=== PATIENT | female | born 1965 | race Two or more races ===

== ENCOUNTER → 2016-07-13 | Outpatient (CLI) | payer MEDICARE, OTHER ==
[2014-01-06 09:35] VITALS: BP 152/71
[~2016-07-13] MED LIST: CRESTOR20 MG PO; LISI10TA2 PO; NAPR500T3 PO; NORT10CA3 PO
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
== END | disposition home or self-care (01) ==
LOC: MRI 10:38
PROVIDERS: ATTEND Family Medicine
DX: M51.34 Other intervertebral disc degeneration, thoracic region (principal); M51.46 Schmorl's nodes, lumbar region
CPT/HCPCS: 72148

== ENCOUNTER 2016-07-30 11:22 | Inpatient (IN) | payer MEDICARE, OTHER ==
[~2016-07-30] VITALS: Ht 160 cm; Wt 81.6 kg
--- NOTE | 2016-07-30 12:05 | EKG ---
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
--- NOTE | 2016-07-30 12:28 | RAD ---
EXAM: Chest, single view. HISTORY: Weakness. COMPARISON: None. FINDINGS: A frontal view of the chest is obtained. There is no infiltrate, effusion or pneumothorax. The heart is normal in size. IMPRESSION: No acute pulmonary finding.
--- NOTE | 2016-07-30 12:44 | RAD ---
EXAM: Head CT without contrast. HISTORY: Dizziness. TECHNIQUE: Computed tomographic images of the head were obtained without contrast. COMPARISON: 09/28/2010. FINDINGS: There is no acute or subacute extra-axial or intraparenchymal hemorrhage. There is no mass effect or midline shift. There is no hydrocephalus. There are areas of decreased attenuation within the cerebral white matter, nonspecific and likely related to chronic small vessel disease. There are findings consistent with left suboccipital craniotomy surgery. The orbits and mastoid air cells are unremarkable. The paranasal sinuses are clear. IMPRESSION: No acute intracranial finding. PQRS Compliance Statement: One or more of the following individualized dose reduction techniques were utilized for this examination: 1. Automated exposure control 2. Adjustment of the mA and/or kV according to patient size 3. Use of iterative reconstruction technique
[2016-07-30 13:12] LABS: BASO % 0 % (0-3); EOS % 1 % (0-3); HEMOGLOBIN 15.3 g/dL (12.0-15.5); LYMPH % 31 % (24-48); MEAN CORPUSCULAR HEMOGLOBIN 32 pg (25-35); MEAN CORPUSCULAR HGB CONC 34 g/dL (31-37); MEAN CORPUSCULAR VOLUME 94 fL (79-100); MONO % 7 % (0-9); NEUT % 60 % (31-73); PLATELET COUNT 329 x10^3/uL (140-400); RED BLOOD COUNT 4.81 x10^6/uL (3.50-5.40); RED CELL DISTRIBUTION WIDTH 12.7 % (11.5-14.5); WHITE BLOOD COUNT 13.1 x10^3/uL (4.0-11.0)
[2016-07-30 13:21] LABS: CALCIUM 9.5 mg/dL (8.5-10.1); CREATININE 0.8 mg/dL (0.6-1.0); POTASSIUM 4.4 mmol/L (3.5-5.1)
[2016-07-30] MEDS ORDERED: IV NORMAL SALINE 1000ML BAG 1,000 ML IV ONE (13:30)
[2016-07-30] MEDS ORDERED: DEXAMETHASONE SOD PHOS 20 MG/5 ML VIAL. IV ONE (13:30)
[2016-07-30] MEDS ORDERED: DIPHENHYDRAMINE 50 MG/ML VIAL IVP ONE (13:30)
[2016-07-30] MEDS ORDERED: KETOROLAC TROMETHAMINE 30 MG/ML SYRINGE. IV ONE (13:30)
[2016-07-30] MEDS ORDERED: METOCLOPRAMIDE HCL 10 MG/2 ML VIAL. IV ONE (13:30)
--- NOTE | 2016-07-30 13:47 | PHYS DOC ---
Past Medical History Past Medical History: Diabetes-Type II, High Cholesterol, Hypertension, Migraines, Other Additional Past Medical Histor: lower back pain Past Surgical History: , Other Additional Past Surgical Histo: "head surgery" Alcohol Use: None Drug Use: None Adult General Chief Complaint Chief Complaint: HEADACHE HPI HPI 51-year-old female who is had significant headache for the last several days as well as left-sided lower extremity numbness for the last day. She states the majority of her symptoms started on Sunday. She does state she has history of migraines and that this is not the typical presenting pattern. She tried taking Aleve at home without relief. She currently she rates her pain an 8 out of 10 on the pain scale. She does have some mild nausea but no vomiting. She has no photophobia. She states she has full strength in her extremities but feels numb in her left leg. She denies any chest pain. She denies any abdominal pain. Review of Systems Review of Systems Constitutional: Denies fever or chills [] Eyes: Denies change in visual acuity, redness, or eye pain [] HENT: Denies nasal congestion or sore throat [] Respiratory: Denies cough or shortness of breath [] Cardiovascular: No additional information not addressed in HPI [] GI: Denies abdominal pain, nausea, vomiting, bloody stools or diarrhea [] : Denies dysuria or hematuria [] Musculoskeletal: Denies back pain or joint pain [] Integument: Denies rash or skin lesions [] Neurologic: Has headache, denies focal weakness, has sensory changes [] Endocrine: Denies polyuria or polydipsia [] Current Medications Current Medications Allergies Allergies Allergies Coded Allergies Type Severity Reaction Last Updated Verified No Known Drug Allergies 09/11/13 No Physical Exam Physical Exam Constitutional: Well developed, well nourished, no acute distress, non-toxic appearance. [] HENT: Normocephalic, atraumatic, bilateral external ears normal, oropharynx moist, no oral exudates, nose normal. [] Eyes: PERRLA, EOMI, conjunctiva normal, no discharge. [] Neck: Normal range of motion, no tenderness, supple, no stridor. [] Cardiovascular:Heart rate regular rhythm, no murmur [] Lungs & Thorax: Bilateral breath sounds clear to auscultation [] Abdomen: Bowel sounds normal, soft, no tenderness, no masses, no pulsatile masses. [] Skin: Warm, dry, no erythema, no rash. [] Back: No tenderness, no CVA tenderness. [] Extremities: No tenderness, no cyanosis, no clubbing, ROM intact, no edema. [] Neurologic: Alert and oriented X 3, normal motor function, normal sensory function, no focal deficits noted. [] Psychologic: Affect normal, judgement normal, mood normal. [] Current Patient Data Vital Signs Lab Values EKG EKG EKG as interpreted by me shows a sinus rhythm with rate of 60 bpm. Intervals are normal. There is a leftward axis. There are no acute ischemic findings. Radiology/Procedures Radiology/Procedures CT of the head without contrast demonstrated the following; FINDINGS: There is no acute or subacute extra-axial or intraparenchymal hemorrhage. There is no mass effect or midline shift. There is no hydrocephalus. There are areas of decreased attenuation within the cerebral white matter, nonspecific and likely related to chronic small vessel disease. There are findings consistent with left suboccipital craniotomy surgery. The orbits and mastoid air cells are unremarkable. The paranasal sinuses are clear. One view of the chest as interpreted by me does not reveal an acute cardiopulmonary process. Course & Med Decision Making Course & Med Decision Making Pertinent Labs and Imaging studies reviewed. (See chart for details) 51-year-old female who has had ongoing headache with some left lower extremity numbness. Because of her neuro symptoms, I'll be admitting her to the hospital for further workup. CT of her head was negative. NIH stroke scale is 0. Patient is not a TPA candidate at this time. I discussed the case with the hospitalist, Dr. Erwin, who agreed to admit the patient with neurology consult. Her laboratory workup is unrevealing. Dragon Disclaimer Dragon Disclaimer This electronic medical record was generated, in whole or in part, using a voice recognition dictation system. Departure Departure Impression: Primary Impression: Headache Additional Impression: Left-sided sensory deficit present Disposition: ADMITTED INPATIENT Admitting Physician: Wanda Erwin Condition: STABLE Referrals: PAULINE ALFARO MD (PCP) Problem Qualifiers KYLE JOHNSON DO Jul 30, 2016 13:47
[2016-07-30] MEDS ORDERED: ASPIRIN 325 MG TABLET PO ONE (14:00)
[2016-07-30 14:42] VITALS: BP 118/59
[2016-07-30] MEDS ORDERED: DIAZEPAM 5 MG TABLET PO PRN (15:00)
[2016-07-30] MEDS ORDERED: SUMATRIPTAN SUCCINATE 25 MG TABLET. PO PRN (15:00)
[2016-07-30] MEDS ORDERED: MORPHINE SULFATE 2 MG/ML DISP.SYRIN. IV PRN (15:00)
[2016-07-30] MEDS ORDERED: LISI1TAB3 PO (15:01)
[2016-07-30] MEDS ORDERED: ATOR20TA58 PO (15:01)
[2016-07-30] MEDS ORDERED: MILN50TA PO (15:01)
[2016-07-30] MEDS ORDERED: METH10TA6 PO (15:01)
[2016-07-30] MEDS ORDERED: ERGO500012 PO (15:01)
[2016-07-30] MEDS ORDERED: METF850T2 PO (15:01)
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
[2016-07-30] MEDS ORDERED: SUMATRIPTAN 6 MG/0.5 ML VIAL. SQ ONE (15:30)
[2016-07-30] MEDS ORDERED: MILNACIPRAN 50 MG TABLET PO PRN (15:45)
[2016-07-30] MEDS: LISINOPRIL 10 MG TABLET PO SCH (16:00)
[2016-07-30] MEDS: HYDROCHLOROTHIAZIDE 12.5 MG CAPSULE. PO SCH (16:00)
--- NOTE | 2016-07-30 16:12 | ACF ---
Admission Forms Criteria HEADACHES Clinical Indications for Admission to Inpatient Care (Place 'X' for any and all applicable criteria): Admission is indicated for ANY ONE of the following(1)(2)(3)(4): [X]I. Inpatient admission required rather than observational care (Also use Headaches: Observation Care as appropriate) because of ANY ONE of the following: [X]a) Severe pain requiring acute inpatient management [ ]b) Altered mental status that is severe or persistent [ ]c) Vomiting or dehydration that is severe or persistent [ ]d) New-onset focal neurologic deficit that is severe or persistent [ ]e) Hypertension requiring inpatient treatment [ ]f) Severe (new) neurologic findings requiring inpatient care as indicated by ANY ONE of following(9)(10): [ ]1) Papilledema [ ]2) Cerebral edema [ ]3) Mass effect on CT scan [ ]4) Cerebral bleeding, ischemia, or vasospasm(16) [ ]5) Hydrocephalus(17) [ ]6) Uncontrolled seizures [ ]g) IV infusion of anticoagulation, platelet inhibitors vasoactive, or antiarrhythmic medication. [ ]h) Cerebral bleeding, hydrocephalus, or vasospasm monitoring (16) [ ]i) Increased intracranial pressure or cerebral edema monitoring (17) [ ]j) Other condition, treatment or monitoring requiring inpatient admission [ ]II. Unruptured but threatening aneurysm or vascular malformation [ ]III. Venous sinus thrombosis [ ]IV. Increased intracranial pressure [ ]V. Cerebral spinal fluid leak with decreased intracranial pressure [ ]. Medication-overuse headache that has failed all outpatient management options [ ]VII. Vasculitis (eg, giant cell (temporal) arteritis, central nervous system vasculitis) requiring IV corticosteroids, IV antithrombotic therapy, or inpatient monitoring (eg, visual symptoms or findings, other ischemic manifestations)[A](10)(11) Extended stay beyond goal length of stay may be needed for (27): [ ]a) Intractable migraine [ ]b) Subarachnoid or intracranial hemorrhage [ ]c) Malignant hypertension [ ]d) Detoxification from drug withdrawal in medication-overuse headache (29) The original [id number] content created by [facility] has been revised. The portions of the content which have been revised are identified through the use of italic text or in bold, and Juli [facility] has neither reviewed nor approved the modified material.All other unmodified content is copyright [facility]. Please see references footnoted in the original [facility] edition 2016 Admission Criteria Met?: Yes PACHECO RICCI Jul 30, 2016 16:12
[2016-07-30] MEDS: IBUPROFEN 800 MG TABLET. PO SCH ×2 (18:01→20:25)
[2016-07-30] MEDS: METFORMIN 850 MG TABLET PO SCH (18:01)
[2016-07-30] MEDS: METHIMAZOLE 10 MG TABLET PO SCH (18:01)
[2016-07-30 18:33] VITALS: BP 118/59
[2016-07-30 19:00] VITALS: BP 109/63
[2016-07-30] MEDS ORDERED: ATORVASTATIN CALCIUM 20 MG TABLET PO SCH (21:00)
[2016-07-30 23:00] VITALS: BP 89/55
[2016-07-31 03:00] VITALS: BP 106/57
[2016-07-31 07:00] VITALS: BP 100/64
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
[2016-07-31] MEDS ORDERED: ERGOCALCIFEROL (VITAMIN D2) 50,000 UNIT CAPSULE PO SCH (09:00)
[2016-07-31] MEDS: METFORMIN 850 MG TABLET PO SCH ×2 (09:06→17:04)
[2016-07-31] MEDS: HYDROCHLOROTHIAZIDE 12.5 MG CAPSULE. PO SCH (09:07)
[2016-07-31] MEDS: IBUPROFEN 800 MG TABLET. PO SCH ×2 (09:07→13:30)
[2016-07-31] MEDS: LISINOPRIL 10 MG TABLET PO SCH (09:08)
[2016-07-31 11:00] VITALS: BP 109/60
--- NOTE | 2016-07-31 11:30 | DISCH ---
DISCHARGE INSTRUCTIONS Condition on Discharge Condition on Discharge: Stable Activity After Discharge Activity Instructions for Disc: No restrictions Diet after Discharge Diet after Discharge: Regular Contacting the DR. after DC Call your doctor for: If your condition worsens Follow-Up Follow up with: PCP in 1-2 weeks LYLY OLSON MD Jul 31, 2016 11:30
[2016-07-31] MEDS ORDERED: SUMA50TA3 PO (11:37)
[2016-07-31] MEDS: METHIMAZOLE 10 MG TABLET PO SCH (12:28)
[2016-07-31 12:49] LABS: BILIRUBIN,URINE NEGATIVE (NEG); GLUCOSE,URINE NEGATIVE (NEG); NITRITE,URINE NEGATIVE (NEG); PROTEIN,URINE NEGATIVE (NEG-TRACE); UROBILINOGEN,URINE 0.2 mg/dL (0.2 mg/dL)
[2016-07-31 12:55] LABS: BARBITURATES NEG (NEG); BENZODIAZEPINES NEG (NEG); CANNABINOIDS NEG (NEG); COCAINE NEG (NEG); METHADONE NEG (NEG); OPIATES NEG (NEG); PHENCYCLIDINE NEG (NEG)
[2016-07-31 12:56] LABS: ETHANOL, URINE NEG (NEG)
[2016-07-31 12:58] LABS: BACTERIA,URINE MODERATE /HPF (0-FEW); RBC,URINE 0 /HPF (0-2); SQUAMOUS EPITHELIAL CELL,UR MANY /LPF; WBC,URINE OCC /HPF (0-4)
--- NOTE | 2016-07-31 14:17 | RAD ---
PROCEDURE Brain MRI without contrast. HISTORY Left-sided weakness. TECHNIQUE Multiplanar and multi sequence magnetic resonance imaging of the brain was performed without contrast. COMPARISON Head CT dated 07/30/2015. FINDINGS There is no restricted diffusion to suggest acute or subacute infarction. There is no susceptibility effect to suggest hemorrhage. There is no mass effect or midline shift. There are few foci of T2/FLAIR hyperintensity within the cerebral white matter, a nonspecific finding. There are left suboccipital craniotomy changes with associated overlying soft tissue scarring and increased signal within the left lateral occipital bone. The orbits are unremarkable. There is paranasal sinus mucosal thickening. 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 There is fluid within the mastoid air cells. The distal left vertebral artery appears hypoplastic. IMPRESSION 1. No acute intracranial finding. 2. Scattered foci of signal change within the cerebral white matter, a nonspecific finding likely due to chronic small vessel disease. 3. Left suboccipital craniotomy changes. Electronically signed by: Poonam Britton (Jul 31, 2016 14:15:40)
[2016-07-31 15:00] VITALS: BP 109/64
--- NOTE | 2016-07-31 16:14 | PDOC2 ---
NEUROLOGY CONSULT Date of Admission Date of Admission DATE: 07/31/16 TIME: 16:03 Reason for Consult Reason for Consult: IMPRESSION: Left LE weakness. Intermittent numbness in entire body. Headache. DM HTN HLD Obesity. Smoking. No evidence of acute CVA this time. RECOMMENDATIONS/PLAN: Neurontin 100 mg tid. ASA daily. Treat medical diseases. Lab: see orders. Weight reduction. Smoking cessation. FU with PCP. HISTORY OF THE PRESENT ILLNESS: 51-y-old female with above medical diseases has symptoms of left side weakness, numbness in left side , then right side then entire body. She stated she aslo had headaches. No focalized motor or sensory deficits. PAST MEDICAL HISTORY: Please see above. PAST SURGERY HISTORY: . ALLERGY: Reviewed. MEDICATIONS: Refer to MAR FAMILY HISTORY: DM Heart disease. SOCIAL HISTORY: Lives at home. Denies illicit drug use. She smokes <1 pack of cigarettes a day for many years. She drinks alcohol occasionally. REVIEW OF SYSTEMS: Constitutional: No malnutrition, weight loss, cachexia. Head: No traumatic brain or head injury. Skin: No edema, or rash. Ear: No infection, tinnitus. Eyes: No vision loss or color blindness. Nose: No bleeding or purulent discharges. Hearing: No hearing decrease. Neck: No injury. Breast: No history of cancer, masses,or discharges. Cardiac: HTN, HLD. Pulmonary: No COPD. GI: No GI ulcer, GI bleeding. Urinary/genital: UTI. Endocrinologic: Diabetes Mellitus, obesity. Skeletomuscular: No muscular atrophy, deformity.. Neurological: see HP. Psychiatric: Denies drug use/abuse. Otherwise, not [id number] review of systems. PHYSICAL EXAMINATION: General appearance is in no acute distress. HEENT: Normocephalic and nontraumatic. Eyes, nose, ears, and throat are unremarkable. Neck is supple. No lymphadenopathy. No bruits are heard over the carotid artery. No crepitus. Cardiovascular: S1, S2, regular rate and rhythm. Pulmonary: Clear to auscultation bilaterally. Abdomen: Bowel sounds are positive. Abdomen is soft, nontender, and nondistended. Extremities: No rash, lesions, or edema. No restriction of range of motion NEUROLOGICAL EXAMINATION: Alert Oriented to time, place and person. PERRL. EOMI. CN: no focal findings. Muscle tone: within normal. Muscle strength: 5 DTR: 2 Plantar reflex: Flexor response bilaterally Gait: not examined in bed. Sensory exam: no abnormal findings. No cerebellar signs elicited. F-T-N test accurate. Current Medications Current Medications Current Medications Ketorolac Tromethamine (Toradol) 30 mg 1X ONCE IV Last administered on 13:29; Start 07/30/16 at 13:30; Stop 07/30/16 at 13:31; Status DC Diphenhydramine HCl (Benadryl) 25 mg 1X ONCE IVP Last administered on 13:30; Start 07/30/16 at 13:30; Stop 07/30/16 at 13:31; Status DC Metoclopramide HCl (Reglan) 10 mg 1X ONCE IV Last administered on 07/30/16 13 :30; Start 07/30/16 at 13:30; Stop 07/30/16 at 13:31; Status DC Dexamethasone Sodium Phosphate 10 mg 10 mg 1X ONCE IV Last administered on 13:30; Start 07/30/16 at 13:30; Stop 07/30/16 at 13:31; Status DC Sodium Chloride (Iv Sodium Chloride 0.9% 1000ml Bag) 1,000 ml @ 1,000 mls/hr 1X ONCE IV Last administered on 07/30/16 13:30; Start 07/30/16 at 13:30; Stop 07/30/16 at 14:29; Status DC Aspirin (Triston Aspirin) 325 mg 1X ONCE PO Last administered on 07/30/16 14:06 ; Start 07/30/16 at 14:00; Stop 07/30/16 at 14:01; Status DC Sumatriptan Succinate (Imitrex) 6 mg 1X ONCE SQ Last administered on 15:52; Start 07/30/16 at 15:30; Stop 07/30/16 at 15:31; Status DC Sumatriptan Succinate (Imitrex) 25 mg PRN Q2HR PRN PO MIGRAINE HEADACHE; Start 07/30/16 at 15:00 Diazepam (Valium) 5 mg PRN TID PRN PO ANXIETY Last administered on 07/31/16 03 :48; Start 07/30/16 at 15:00 Morphine Sulfate 2 mg PRN Q2HR PRN IV PAIN; Start 07/30/16 at 15:00 Ibuprofen (Motrin) 800 mg TID PO Last administered on 07/31/16 13:30; Start at 15:30 Atorvastatin Calcium (Lipitor) 20 mg QHS PO Last administered on 07/30/16 20: 26; Start 07/30/16 at 21:00 Ergocalciferol (Vitamin D2) 50,000 unit WEEKLY PO Last administered on 09:06; Start 07/31/16 at 09:00 Hydrochlorothiazide (Microzide) 12.5 mg DAILY PO Last administered on 09:07; Start 07/30/16 at 16:00 Lisinopril (Prinivil) 10 mg DAILY PO Last administered on 07/31/16 09:08; Start 07/30/16 at 16:00 Metformin HCl (Glucophage) 850 mg BIDWMEALS PO Last administered on 07/31/16 09:06; Start 07/30/16 at 17:00 Methimazole (Tapazole) 10 mg DAILY PO Last administered on 07/31/16 12:28; Start 07/30/16 at 16:30 Milnacipran HCl (Savella) 50 mg PRN DAILY PRN PO PAIN; Start 07/30/16 at 15:45 Active Scripts Active Reported Savella (Milnacipran Hcl) 50 Mg Tablet 50 Mg PO DAILY PRN Vitamin D2 (Ergocalciferol (Vitamin D2)) 50,000 Unit Capsule 50,000 Units PO QTH Lisinopril-Hctz 10-12.5 Mg Tab (Lisinopril/Hydrochlorothiazide) 1 Each Tablet 10 -12.5 Mg PO DAILY Methimazole 10 Mg Tablet 10 Mg PO BID Metformin Hcl 850 Mg Tablet 850 Mg PO BIDAC Atorvastatin Calcium 20 Mg Tablet 20 Mg PO HS Crestor (Rosuvastatin Calcium) 20 Mg Tablet 20 Mg PO DAILY Naproxen 500 Mg Tablet 500 Mg PO PRN Lisinopril 10 Mg Tablet 10 Mg PO DAILY Pamelor (Nortriptyline Hcl) 10 Mg Capsule 10 Mg PO DAILY Allergies Allergies: Coded Allergies: No Known Drug Allergies (Unverified , 09/11/13) Vitals VITALS Vital Signs Date Time Temp Pulse Resp B/P Pulse Ox O2 Delivery O2 Flow Rate FiO2 07/31/16 11:00 76 22 109/60 97 Room Air 07/31/16 07:00 100.1 100.1 Labs Labs Laboratory Tests Test 07/30/16 12:55 07/30/16 21:19 07/31/16 08:34 07/31/16 11:06 White Blood Count 13.1x10^3/uL (4.0-11.0) Red Blood Count 4.81x10^6/uL (3.50-5.40) Hemoglobin 15.3g/dL (12.0-15.5) Hematocrit 45.0% (36.0-47.0) Mean Corpuscular Volume 94fL (79-100) Mean Corpuscular Hemoglobin 32pg (25-35) Mean Corpuscular Hemoglobin Concent 34g/dL (31-37) Red Cell Distribution Width 12.7% (11.5-14.5) Platelet Count 329x10^3/uL (140-400) Neutrophils (%) (Auto) 60% (31-73) Lymphocytes (%) (Auto) 31% (24-48) Monocytes (%) (Auto) 7% (0-9) Eosinophils (%) (Auto) 1% (0-3) Basophils (%) (Auto) 0% (0-3) Neutrophils # (Auto) 7.9x10^3uL (1.8-7.7) Lymphocytes # (Auto) 4.0x10^3/uL (1.0-4.8) Monocytes # (Auto) 0.9x10^3/uL (0.0-1.1) Eosinophils # (Auto) 0.1x10^3/uL (0.0-0.7) Basophils # (Auto) 0.0x10^3/uL (0.0-0.2) Sodium Level 143mmol/L (136-145) Potassium Level 4.4mmol/L (3.5-5.1) Chloride Level 103mmol/L (98-107) Carbon Dioxide Level 29mmol/L (21-32) Anion Gap 11 (6-14) Blood Urea Nitrogen 9mg/dL (7-20) Creatinine 0.8mg/dL (0.6-1.0) Estimated GFR (Cockcroft-Gault) 75.0 Glucose Level 87mg/dL (70-99) Calcium Level 9.5mg/dL (8.5-10.1) Glucose (Fingerstick) 197mg/dL (70-99) 192mg/dL (70-99) 149mg/dL (70-99) Test 07/31/16 12:35 07/31/16 12:40 Urine Collection Type Unknown Urine Color Yellow Urine Clarity Clear Urine pH 6.0 Urine Specific [place] 1.015 Urine Protein Negativemg/dL (NEG-TRACE) Urine Glucose (UA) Negativemg/dL (NEG) Urine Ketones (Stick) Negativemg/dL (NEG) Urine Blood Negative (NEG) Urine Nitrite Negative (NEG) Urine Bilirubin Negative (NEG) Urine Urobilinogen Dipstick 0.2mg/dL (0.2 mg/dL) Urine Leukocyte Esterase Negative (NEG) Urine RBC 0/HPF (0-2) Urine WBC Occ/HPF (0-4) Urine Squamous Epithelial Cells Many/LPF Urine Bacteria Moderate/HPF (0-FEW) Urine Mucus Mod/LPF Urine Opiates Screen Neg (NEG) Urine Methadone Screen Neg (NEG) Urine Barbiturates Neg (NEG) Urine Phencyclidine Screen Neg (NEG) Urine Amphetamine/Methamphetamine Neg (NEG) Urine Benzodiazepines Screen Neg (NEG) Urine Cocaine Screen Neg (NEG) Urine Cannabinoids Screen Neg (NEG) Urine Ethyl Alcohol Neg (NEG) Erythrocyte Sedimentation Rate 4 (0-25) Laboratory Tests Test 07/30/16 21:19 07/31/16 08:34 07/31/16 11:06 07/31/16 12:35 Glucose (Fingerstick) 197mg/dL (70-99) 192mg/dL (70-99) 149mg/dL (70-99) Urine Collection Type Unknown Urine Color Yellow Urine Clarity Clear Urine pH 6.0 Urine Specific [place] 1.015 Urine Protein Negativemg/dL (NEG-TRACE) Urine Glucose (UA) Negativemg/dL (NEG) Urine Ketones (Stick) Negativemg/dL (NEG) Urine Blood Negative (NEG) Urine Nitrite Negative (NEG) Urine Bilirubin Negative (NEG) Urine Urobilinogen Dipstick 0.2mg/dL (0.2 mg/dL) Urine Leukocyte Esterase Negative (NEG) Urine RBC 0/HPF (0-2) Urine WBC Occ/HPF (0-4) Urine Squamous Epithelial Cells Many/LPF Urine Bacteria Moderate/HPF (0-FEW) Urine Mucus Mod/LPF Urine Opiates Screen Neg (NEG) Urine Methadone Screen Neg (NEG) Urine Barbiturates Neg (NEG) Urine Phencyclidine Screen Neg (NEG) Urine Amphetamine/Methamphetamine Neg (NEG) Urine Benzodiazepines Screen Neg (NEG) Urine Cocaine Screen Neg (NEG) Urine Cannabinoids Screen Neg (NEG) Urine Ethyl Alcohol Neg (NEG) Test 07/31/16 12:40 Erythrocyte Sedimentation Rate 4 (0-25) JOHANA MYERS MD Jul 31, 2016 16:13
[2016-07-31 17:15] LABS: ALT (SGPT) 22 U/L (14-59); AST (SGOT) 14 U/L (15-37); CREATINE KINASE 54 U/L (26-192)
[2016-07-31] MEDS ORDERED: GABAPENTIN 100 MG CAPSULE. PO SCH (21:00)
[2016-08-01] MEDS ORDERED: ASPIRIN 81 MG TAB.CHEW PO SCH (08:00)
--- NOTE | 2016-08-01 17:56 | DS ---
DATE OF DISCHARGE: 07/31/2016 CHIEF COMPLAINT: Intractable headache. HOSPITAL COURSE: The patient is a 51-year-old woman with history of migraine/tension headaches. She presented to the Emergency Room with severe headaches, not responding to her usual medications. She was therefore admitted for pain management. She actually responded well to IV narcotics. Headache was resolved on the second day. She was therefore discharged to home. Discussion with her was held about trial of Imitrex. Prescription was made available. PHYSICAL EXAMINATION: Please refer to note from same date. DATE OF DISCHARGE: 07/31/2016. DISCHARGE DISPOSITION: To home. DISCHARGE CONDITION: Improved. DISCHARGE DIAGNOSES: Intractable headache. DISCHARGE MEDICATIONS: Please refer to MAR. DISCHARGE INSTRUCTIONS: The patient will follow up with PCP in 1-2 weeks. LYLY OLSON MD DR: UR/nts JOB#: [id number] / [id number] PAULINE Durham MD MTDD
== END 2016-07-31 19:45 | disposition home or self-care (01) | DRG 103 ==
LOC: ER 11:22 → 5 SOUTH 11:38
PROVIDERS: ADMIT Internal Medicine; ATTEND Internal Medicine
DX: G43.909 Migraine, unspecified, not intractable, without status migrainosus (principal); G44.209 Tension-type headache, unspecified, not intractable; E11.9 Type 2 diabetes mellitus without complications; E66.9 Obesity, unspecified; E78.00 Pure hypercholesterolemia, unspecified; E78.5 Hyperlipidemia, unspecified; F17.210 Nicotine dependence, cigarettes, uncomplicated; I10 Essential (primary) hypertension; Z83.3 Family history of diabetes mellitus; Z79.899 Other long term (current) drug therapy; Z79.82 Long term (current) use of aspirin; Z98.890 Other specified postprocedural states; R53.1 Weakness
CPT/HCPCS: 36415; 70450; 70551; 71010; 80048; 81001; 82550; 82947; 84450; 84460; 85027; 85651; 87086; 93005; 96361; 96374; 96375; G0481; J1100; J1200; J1885; J2765; J3030; J7030; 99285-25

== ENCOUNTER 2016-09-24 21:48 | Inpatient (IN) | payer MEDICARE, OTHER ==
[~2016-09-24] VITALS: Ht 160 cm; Wt 83.0 kg
[~2016-09-24 21:48] MED LIST changes: +ATOR20TA58 PO; +ERGO500012 PO; +LISI1TAB3 PO; +METF850T2 PO; +METH10TA6 PO; +MILN50TA PO; +SUMA50TA3 PO
[2016-09-24] MEDS ORDERED: IV NORMAL SALINE 1000ML BAG 1,000 ML IV SCH (22:30)
[2016-09-24] MEDS ORDERED: FENTANYL PF 100 MCG/2 ML VIAL. IV PRN (22:30)
[2016-09-24] MEDS ORDERED: ASPIRIN 81 MG TAB.CHEW PO ONE (22:30)
[2016-09-24] MEDS ORDERED: ONDANSETRON PF 4 MG/2 ML VIAL. IV ONE (22:30)
--- NOTE | 2016-09-24 22:30 | PHYS DOC ---
Past Medical History Past Medical History: Diabetes-Type II, High Cholesterol, Hypertension, Migraines, Other Additional Past Medical Histor: lower back pain Past Surgical History: , Other Additional Past Surgical Histo: "head surgery" Alcohol Use: None Drug Use: None Adult General Chief Complaint Chief Complaint: CHEST PAIN HPI HPI Patient is a 51 year old female who presents with complaint of chest pain that started approximately 1 hour prior to arrival. Patient states her symptoms started at rest. Patient states that her pain is located along left side of her chest and left axilla. Patient describes it as pressure, 10 out of 10, and radiates to the left side of her back. Patient has history of hypertension, hyperlipidemia, and diabetes mellitus. Patient denies history of similar symptoms. Patient has not taken any medications to help with symptoms. Review of Systems Review of Systems Constitutional: Denies fever or chills [] Eyes: Denies change in visual acuity, redness, or eye pain [] HENT: Denies nasal congestion or sore throat [] Respiratory: Denies cough or shortness of breath [] Cardiovascular: Chest pain, denies edema [] GI: Denies abdominal pain, nausea, vomiting, bloody stools or diarrhea [] : Denies dysuria or hematuria [] Musculoskeletal: Denies back pain or joint pain [] Integument: Denies rash or skin lesions [] Neurologic: Denies headache, focal weakness or sensory changes [] Current Medications Current Medications Current Medications Medications (Trade) Dose Ordered Sig/Bacilio Start Time Stop Time Status Last Admin Dose Admin Aspirin (Children'S Aspirin) 324 mg 1X ONCE 09/24/16 22:30 09/24/16 22:31 DC 09/24/16 22:46 324 MG Fentanyl Citrate 50 mcg 50 mcg PRN Q15MIN PRN 09/24/16 22:30 09/25/16 22:29 Nitroglycerin (Nitrostat) 0.4 mg PRN Q5MIN PRN 09/24/16 22:30 09/25/16 22:29 09/24/16 22:48 0.4 MG Ondansetron HCl (Zofran) 4 mg 1X ONCE 09/24/16 22:30 09/24/16 22:31 DC 09/24/16 22:43 4 MG Sodium Chloride (Iv Sodium Chloride 0.9% 1000ml Bag) 1,000 ml @ 100 mls/hr Q10H 09/24/16 22:30 09/25/16 08:29 09/24/16 22:41 100 MLS/HR Allergies Allergies Allergies Coded Allergies Type Severity Reaction Last Updated Verified No Known Drug Allergies 09/11/13 No Physical Exam Physical Exam Constitutional: Alert, afebrile, appears in moderate discomfort. [] HENT: Normocephalic, atraumatic, bilateral external ears normal, oropharynx moist, no oral exudates, nose normal. [] Eyes: PERRLA, EOMI, conjunctiva normal, no discharge. [] Neck: Normal range of motion, no tenderness, supple, no stridor. [] Cardiovascular:Heart rate regular rhythm, no murmur [] Lungs & Thorax: Bilateral breath sounds clear to auscultation [] Abdomen: Bowel sounds normal, soft, no tenderness, no masses, no pulsatile masses. [] Skin: Warm, dry, no erythema, no rash. [] Back: No tenderness, no CVA tenderness. [] Extremities: No tenderness, no cyanosis, no clubbing, ROM intact, no edema. [] Neurologic: Alert and oriented X 3, normal motor function, normal sensory function, no focal deficits noted. [] Current Patient Data Vital Signs Vital Signs Date Time Temp Pulse Resp B/P Pulse Ox O2 Delivery O2 Flow Rate FiO2 09/24/16 22:48 87 115/58 Lab Values Laboratory Tests Test 09/24/16 21:55 White Blood Count 15.7x10^3/uL (4.0-11.0) H Red Blood Count 4.69x10^6/uL (3.50-5.40) Hemoglobin 15.1g/dL (12.0-15.5) Hematocrit 44.6% (36.0-47.0) Mean Corpuscular Volume 95fL (79-100) Mean Corpuscular Hemoglobin 32pg (25-35) Mean Corpuscular Hemoglobin Concent 34g/dL (31-37) Red Cell Distribution Width 14.2% (11.5-14.5) Platelet Count 313x10^3/uL (140-400) Neutrophils (%) (Auto) 63% (31-73) Lymphocytes (%) (Auto) 30% (24-48) Monocytes (%) (Auto) 7% (0-9) Eosinophils (%) (Auto) 1% (0-3) Basophils (%) (Auto) 0% (0-3) Neutrophils # (Auto) 9.8x10^3uL (1.8-7.7) H Lymphocytes # (Auto) 4.7x10^3/uL (1.0-4.8) Monocytes # (Auto) 1.0x10^3/uL (0.0-1.1) Eosinophils # (Auto) 0.1x10^3/uL (0.0-0.7) Basophils # (Auto) 0.0x10^3/uL (0.0-0.2) Sodium Level 140mmol/L (136-145) Potassium Level 3.7mmol/L (3.5-5.1) Chloride Level 101mmol/L (98-107) Carbon Dioxide Level 27mmol/L (21-32) Anion Gap 12 (6-14) Blood Urea Nitrogen 16mg/dL (7-20) Creatinine 0.8mg/dL (0.6-1.0) Estimated GFR (Cockcroft-Gault) 75.0 Glucose Level 158mg/dL (70-99) H Calcium Level 9.6mg/dL (8.5-10.1) Magnesium Level 1.7mg/dL (1.8-2.4) L Total Bilirubin 0.3mg/dL (0.2-1.0) Direct Bilirubin 0.1mg/dL (0.0-0.2) Aspartate Amino Transferase (AST) 14U/L (15-37) L Alanine Aminotransferase (ALT) 24U/L (14-59) Alkaline Phosphatase 124U/L (46-116) H Creatine Kinase 113U/L (26-192) Creatine Kinase MB (Mass) < 0.5ng/mL (0.0-3.6) Creatine Kinase MB Relative Index 0.4% (0-4) Troponin I Quantitative < 0.017ng/mL (0.000-0.055) QJ-Czq-H-Type Natriuretic Peptide 11pg/mL (0-124) Total Protein 7.7g/dL (6.4-8.2) Albumin 4.0g/dL (3.4-5.0) Lipase 146U/L (73-393) Laboratory Tests 09/24/16 21:55 Laboratory Tests 09/24/16 21:55 EKG EKG Interpreted by me: Heart rate 90, sinus rhythm, normal intervals, normal axis, no acute ST/T-wave abnormalities present [] Radiology/Procedures Radiology/Procedures One view AP chest x-ray interpreted by me: No infiltrates, no effusions, normal cardiac silhouette [] Course & Med Decision Making Course & Med Decision Making Pertinent Labs and Imaging studies reviewed. (See chart for details) Patient was given aspirin, nitroglycerin, and fentanyl in the emergency department. Patient's symptoms have improved but are still present at this time. The patient has significant risk factors for coronary artery disease. The patient will need admission to the hospital for rule out of myocardial infarction. Patient admitted to Dr. Erwin. A consult was placed to Dr. Bingham to follow patient in hospital. Dragon Disclaimer Dragon Disclaimer This electronic medical record was generated, in whole or in part, using a voice recognition dictation system. Departure Departure Impression: Primary Impression: Chest pain Additional Impressions: Hypertension Diabetes mellitus Hyperlipidemia Disposition: ADMITTED INPATIENT Admitting Physician: Wanda Erwin Condition: STABLE Referrals: PAULINE ALFARO MD (PCP) Problem Qualifiers Primary Impression: Chest pain Chest pain type: unspecified Qualified Code: R07.9 - Chest pain, unspecified Additional Impressions: Hypertension Hypertension type: essential hypertension Qualified Code: I10 - Essential ( primary) hypertension Diabetes mellitus Diabetes mellitus type: type 2 Diabetes mellitus complication status: without complication 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
[2016-09-24 22:32] LABS: BASO % 0 % (0-3); EOS % 1 % (0-3); HEMATOCRIT 44.6 % (36.0-47.0); HEMOGLOBIN 15.1 g/dL (12.0-15.5); LYMPH # 4.7 x10^3/uL (1.0-4.8); LYMPH % 30 % (24-48); MEAN CORPUSCULAR HEMOGLOBIN 32 pg (25-35); MEAN CORPUSCULAR HGB CONC 34 g/dL (31-37); MEAN CORPUSCULAR VOLUME 95 fL (79-100); MONO % 7 % (0-9); NEUT % 63 % (31-73); PLATELET COUNT 313 x10^3/uL (140-400); RED BLOOD COUNT 4.69 x10^6/uL (3.50-5.40); RED CELL DISTRIBUTION WIDTH 14.2 % (11.5-14.5); WHITE BLOOD COUNT 15.7 x10^3/uL (4.0-11.0)
[2016-09-24] MEDS: NITROGLYCERIN SUBLINGUAL 0.4 MG BOTTLE OF 25. SL PRN ×2 (22:41→22:48)
[2016-09-24 22:54] LABS: CALCIUM 9.6 mg/dL (8.5-10.1); CREATININE 0.8 mg/dL (0.6-1.0); POTASSIUM 3.7 mmol/L (3.5-5.1)
[2016-09-24 22:57] LABS: DIRECT BILIRUBIN 0.1 mg/dL (0.0-0.2); MAGNESIUM 1.7 mg/dL (1.8-2.4); TOTAL BILIRUBIN 0.3 mg/dL (0.2-1.0); TOTAL PROTEIN 7.7 g/dL (6.4-8.2)
[2016-09-24 23:01] LABS: CREATINE KINASE 113 U/L (26-192)
[2016-09-24 23:03] LABS: CKMB INDEX 0.4 % (0-4); CKMB MASS < 0.5 ng/mL (0.0-3.6)
--- NOTE | 2016-09-24 23:36 | ACF ---
Admit Criteria Forms Admit Criteria Forms Admit Criteria Forms CHEST PAIN Clinical Indications for Admission to Inpatient Care (Place 'X' for any and all applicable criteria): Admission is indicated for chest pain and ANY ONE of the following(1)(2)(3)(4)(5 ): [ ]I. Angina with acute coronary syndrome (Also use Myocardial Infarction or Angina guideline) [X]II. Hemodynamic instability [ ]III. Angina needing acute intervention as indicated by ALL of the following( 11)(12): [ ]a) Unstable angina is present as indicated by angina that is ANY ONE of the following: [ ]i) New onset [ ]ii) Nocturnal [ ]iii) Prolonged at rest [ ]iv) Progressive [ ]b) Angina warrants acute intervention as indicated by ANY ONE of the following: [ ]i) Recurrent angina (e.g, not responding as previously to treatment) [ ]ii) Angina at rest or with low-level activities despite initial medical therapy [ ]iii) New or presumably new ST-segment depression on ECG [ ]iv) Signs or symptoms of heart failure (eg, dyspnea, pulmonary edema) [ ]v) New or worsening mitral regurgitation [ ]vi) Hemodynamic instability [ ]vii) Dangerous arrhythmia (eg, sustained ventricular tachycardia) [ ]viii) History of percutaneous coronary intervention within 6 months [ ]ix) History of coronary artery bypass graft surgery [ ]x) GALE risk score of 2 or greater[A] [ ]xi) History of Diabetes(14) [ ]xii) High-risk cardiac ischemia findings on noninvasive testing (e.g, echocardiogram, treadmill testing, nuclear scan) [ ]xiii) Chronic renal insufficiency (ie, estimated GFR less than 60 mL/min/1.732m) [ ]xiv) Left ventricular ejection fraction less than 40% [ ]IV. Evidence of CT (eg, cardiac biomarkers positive, ST-segment elevation on ECG) also use Myocardial Infarction Criteria Form. [ ]V. Pulmonary edema [ ]. Respiratory distress [ ]VII. Chest pain indicative of serious diagnosis other than coronary artery disease (eg, aortic dissection) [ ]VIII. Contraindications and/or Inappropriate clinical situations for Observational Care in patients with Chest Pain, when ANY ONE of the following is required: [ ]a) Patient with risk factor for pulmonary embolism, acute coronary syndrome and myocardial infarction (18) [ ]b) Patient with Pulmonary embolism require an average LOS of 4.3 days, therefore emergency department observation management is inappropriate 18,23 [ ]c) Painful condition/s in the elderly, have the highest rate of recidivism after emergency department observation management (10.8%) 20,21,22 [ ]d) Elevated cardiac biomarker requires intensive and exhaustive care (19) [ ]IX. General contraindications and/or Inappropriate clinical situations for Observational Care in patients with Chest Pain, when ANY ONE of the following is required: [ ]a) Prediction of prolongation of LOS based on ANY ONE of the following may be considered as a contraindication for observational care 2, 3, 4, 5, 6, 7, 8, 9, 10, 11 [ ]i) Age > 65 yrs. [ ]ii) Patient arriving by ambulance [ ]iii) Patient with high acuity [ ]iv) Patient requiring vital sign monitoring [ ]v) Patient on IV medication [ ]b) Systolic blood pressures 180mmHg 3,12 [ ]c) Patient with altered mental status including delirium and other alteration of consciousness, (3) [ ]d) Patient whose discharge disposition will be to a shelter home or rehabilitation home should not be managed in Emergency Department Observation Unit. CMS rule requires 3 days hospital stay before such placement. 3,13 [ ]e) Patient with failure to thrive due to broad array of etiologies 3,16,17 [ ]f) Inability to ambulate 3,14 Extended stay beyond goal length of stay may be needed for (1)(28): [ ]a) Specific condition diagnosed after evaluation (eg, pulmonary embolism, aortic dissection) [ ]b) Unstable angina [ ]c) Continued suspicion of acute coronary syndrome with inability to complete needed cardiac evaluation (eg, patient clinically unable to undergo stress testing) [ ]d) Myocardial infarction (Contents from ANGINA and CHEST PAIN clinical indications for admission to inpatient care have been integrated in this form) The original Original content created by Original has been revised. The portions of the content which have been revised are identified through the use of italic text or in bold, and [facility] has neither reviewed nor approved the modified material. All other unmodified content is copyright Original. Please see references footnoted in the original Original edition 2016 HERB ELENA Sep 24, 2016 23:36
[2016-09-25] VITALS (7 sets, daily range): BP systolic 95–116; BP diastolic 53–74
[2016-09-25] MEDS ORDERED: ASPI1TAB2 PO (02:03)
--- NOTE | 2016-09-25 06:18 | EKG ---
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
--- NOTE | 2016-09-25 08:06 | RAD ---
Portable chest, 09/24/2016: History: Chest pain Comparison is made to a study from 07/30/2016. The heart is at the upper limits of normal in size. The pulmonary vascularity is normal. No pulmonary infiltrates are seen There is no evidence of pleural fluid. IMPRESSION: No acute cardiopulmonary abnormality is detected.
[2016-09-25] MEDS ORDERED: FLU VACC QUAD 2016-17 (36MOS+)/PF 0.5 ML SYRINGE. VAX IM ONE (09:00)
[2016-09-25] MEDS ORDERED: INFLUENZA VAX SCREEN BY RX. MC ONE (09:00)
--- NOTE | 2016-09-25 09:44 | PDOC2 ---
CARDIAC CONSULT DATE OF CONSULT Date of Consult DATE: 09/25/16 TIME: 09:40 REASON FOR CONSULT Reason for Consult: Chest pain REFERRING PHYSICIAN Referring Physician: Doe SOURCE Source: Chart review, Patient HISTORY OF PRESENT ILLNESS HISTORY OF PRESENT ILLNESS This is a pleasant 51 yo female admitted for complains of chest pain. Reports that in the last 1-2 weeks she has been more tired that usual but no SOA. Reports that last night about 8 PM she started having this lingering left axillary chest discomfort, stabbing and burning sensation that radiated to left chest under breast and left arm with some numbness as well. Currently these are absent. No prior episodes before last nights occurrence. Also associated with nausea, but no palpitations nor dizziness. Reports no prior hx of CAD, VTE , falls or any injury. Reports no prior heavy lifting, shoulder impingement or injury. PAST MEDICAL HISTORY Cardiovascular: HTN, Hyperlipidemia Pulmonary: No pertinent hx CENTRAL NERVOUS SYSTEM: Migraine, Other GI: Diverticulosis Heme/Onc: No pertinent hx Hepatobiliary: No pertinent hx Psych: No pertinent hx Musculoskeletal: Osteoarthritis Rheumatologic: No pertinent hx Infectious disease: No pertinent hx ENT: No pertinent hx Renal/: No pertinent hx Endocrine: Diabetes (2), Hyperthyroidism Dermatology: No pertinent hx PAST SURGICAL HISTORY Past Surgical History: (x2), Other FAMILY HISTORY Family History: Coronary Artery Disease (mother father, sister and brother) SOCIAL HISTORY Smoke: <1 pack per day (>30 yrs) ALCOHOL: none Drugs: None Lives: with Family CURRENT MEDICATIONS CURRENT MEDICATIONS Current Medications Medications (Trade) Dose Ordered Sig/Bacilio Route PRN Reason Start Time Stop Time Status Last Admin Dose Admin Aspirin (Children'S Aspirin) 324 mg 1X ONCE PO 09/24/16 22:30 09/24/16 22:31 DC 09/24/16 22:46 Nitroglycerin 0.4 mg 0.4 mg PRN Q5MIN PRN SL CP RATING > 1/10 09/24/16 22:30 09/25/16 22:29 09/24/16 22:48 Sodium Chloride (Iv Sodium Chloride 0.9% 1000ml Bag) 1,000 ml @ 100 mls/hr Q10H IV 09/24/16 22:30 09/25/16 08:29 DC 09/24/16 22:41 Ondansetron HCl (Zofran) 4 mg 1X ONCE IV 09/24/16 22:30 09/24/16 22:31 DC 09/24/16 22:43 ALLERGIES ALLERGIES: Coded Allergies: No Known Drug Allergies (Unverified , 09/11/13) ROS Review of System 14 point ROS evaluated with pertinent positives noted per HPI PHYSICAL EXAM General: Alert, Oriented X3, Cooperative, No acute distress HEENT: Atraumatic, Mucous membr. moist/pink Lungs: Clear to auscultation, Normal air movement Heart: Regular rate, Normal S1, Normal S2, No murmurs Abdomen: Soft, No tenderness Extremities: No cyanosis, No edema Skin: No breakdown, No significant lesion Neuro: Normal speech, Sensation intact Psych/Mental Status: Mental status NL, Mood NL MUSCULOSKELETAL: Osteoarthritic changes both hands VITALS VITALS Vital Signs Date Time Temp Pulse Resp B/P Pulse Ox O2 Delivery O2 Flow Rate FiO2 09/25/16 08:00 Nasal Cannula 1.0 09/25/16 07:00 98.2 74 20 98/61 97 98.2 LABS Lab: Laboratory Tests Test 09/24/16 21:55 09/25/16 07:02 White Blood Count 15.7x10^3/uL (4.0-11.0) Red Blood Count 4.69x10^6/uL (3.50-5.40) Hemoglobin 15.1g/dL (12.0-15.5) Hematocrit 44.6% (36.0-47.0) Mean Corpuscular Volume 95fL (79-100) Mean Corpuscular Hemoglobin 32pg (25-35) Mean Corpuscular Hemoglobin Concent 34g/dL (31-37) Red Cell Distribution Width 14.2% (11.5-14.5) Platelet Count 313x10^3/uL (140-400) Neutrophils (%) (Auto) 63% (31-73) Lymphocytes (%) (Auto) 30% (24-48) Monocytes (%) (Auto) 7% (0-9) Eosinophils (%) (Auto) 1% (0-3) Basophils (%) (Auto) 0% (0-3) Neutrophils # (Auto) 9.8x10^3uL (1.8-7.7) Lymphocytes # (Auto) 4.7x10^3/uL (1.0-4.8) Monocytes # (Auto) 1.0x10^3/uL (0.0-1.1) Eosinophils # (Auto) 0.1x10^3/uL (0.0-0.7) Basophils # (Auto) 0.0x10^3/uL (0.0-0.2) Sodium Level 140mmol/L (136-145) Potassium Level 3.7mmol/L (3.5-5.1) Chloride Level 101mmol/L (98-107) Carbon Dioxide Level 27mmol/L (21-32) Anion Gap 12 (6-14) Blood Urea Nitrogen 16mg/dL (7-20) Creatinine 0.8mg/dL (0.6-1.0) Estimated GFR (Cockcroft-Gault) 75.0 Glucose Level 158mg/dL (70-99) Calcium Level 9.6mg/dL (8.5-10.1) Magnesium Level 1.7mg/dL (1.8-2.4) Total Bilirubin 0.3mg/dL (0.2-1.0) Direct Bilirubin 0.1mg/dL (0.0-0.2) Aspartate Amino Transf (AST/SGOT) 14U/L (15-37) Alanine Aminotransferase (ALT/SGPT) 24U/L (14-59) Alkaline Phosphatase 124U/L (46-116) Creatine Kinase 113U/L (26-192) Creatine Kinase MB (Mass) < 0.5ng/mL (0.0-3.6) Creatine Kinase MB Relative Index 0.4% (0-4) Troponin I Quantitative < 0.017ng/mL (0.000-0.055) KS-Rmk-X-Type Natriuretic Peptide 11pg/mL (0-124) Total Protein 7.7g/dL (6.4-8.2) Albumin 4.0g/dL (3.4-5.0) Lipase 146U/L (73-393) Glucose (Fingerstick) 101mg/dL (70-99) ASSESSMENT/PLAN ASSESSMENT/PLAN 1. Chest pain: Doubt ACS likely MSK. 2. DM2/HLP: per PCP 3. HTN: low BP 4. Migraine: controlled with daily excedrin. Last dose of triptan about 2 months ago 5. Hyperthyroidism: on methimazole 6. Hypomagnesemia 7. Fatigue: hypothyroid conversion? 8. Tobaccoism Recommendations 1. Significant cardiac risk factors. MPI/TTE today 2. Replace Mg. Check lipids, BMP, TSH 3. Continue with secondary prevention. Statin to adjust per levels. 4. Smoking cessation 5. Hold ACEi for now with low BP. Problems: JULITO BECK APRN Sep 25, 2016 09:44
[2016-09-25 10:40] LABS: BILIRUBIN,URINE NEGATIVE (NEG); GLUCOSE,URINE NEGATIVE (NEG); NITRITE,URINE NEGATIVE (NEG); PH,URINE 5.5; PROTEIN,URINE NEGATIVE (NEG-TRACE); UROBILINOGEN,URINE 0.2 mg/dL (0.2 mg/dL)
[2016-09-25 10:58] LABS: BACTERIA,URINE FEW /HPF (0-FEW); RBC,URINE 0 /HPF (0-2); SQUAMOUS EPITHELIAL CELL,UR FEW /LPF
[2016-09-25 11:44] LABS: CALCIUM 8.7 mg/dL (8.5-10.1); CREATININE 0.7 mg/dL (0.6-1.0); GFR 87.5; MAGNESIUM 1.7 mg/dL (1.8-2.4)
[2016-09-25] MEDS ORDERED: REGADENOSON 0.4 MG/5 ML DISP.SYRIN. IV ONE (11:45)
[2016-09-25 11:48] LABS: CHOLESTEROL/HDL RATIO 5.3
[2016-09-25] MEDS ORDERED: MAGNESIUM SULFATE 2GM 50 ML IV ONE (14:00)
--- NOTE | 2016-09-25 14:44 | RAD ---
APPROVED REPORT Test Type: Pharmacological Stress Nurse/Tech: Stella Ordonez R.N. Test Indications: C/P Cardiac History: htn,DM Medications: See Electronic Medical Record Medical History: See Electronic Medical Record Resting ECG: SB Resting Heart Rate: 58 bpm Resting Blood Pressure: 104/58mmHg Pretest Chest Pain: No chest painAtypical angina Nurse/Tech Notes S1S2, lungs CTA, states she has a "pinching" sensation across left breast area scale 3/10 Consent: The procedure was explained to the patient in lay terms. Informed consent was witnessed. Eddie eout was entered into [employer]. History and Stress Test performed by MANUEL Navarrete Pharm. Details Pharmacologic stress testing was performed using 0.4mg per 5ml of regadenoson given intravenously ove r 7-10 seconds. Stress Symptoms dyspnea and general malaise. both of which resolved by the end of recovery period POST EXERCISE Reason for Termination: Infusion complete Max HR: 92 bpm Max Blood Pressure: 121/57mmHg Blood Pressure response to exercise: Normal blood pressure response during stress. Heart Rate response to exercise: wnl Chest Pain: Yes. no increase from above noted pre-test Arrhythmia: No. ST Change: No. INTERPRETATION Stress EKG Conclusion: Negative Imaging Protocol IMAGE PROTOCOL: Rest Tc-99m/stress Tc-99m 1 day Rest: Stress: Viability: Radiopharm.Tc99m NuflcdhqeIe56k Sestamibi Dose10.5mCi 33.6mCi Duration 15min. 10min. Img Date 09/25/2016 09/25/2016 Inj-Img Dzch94txb. 60min. Rest Admin Site:IV - Left AntecubitalAdministrator:Poonam Garcia RT (R)(N) Stress Admin Site: IV - Left AntecubitalAdministrator: MANUEL Navarrete STRESS DATA End Diast. Vol.75.0mlAv. Heart Rate73.0bpm End Syst. Vol.11.0mlCO Index BSA0.0L/min Myocardial Mxjy268.0gEject. Mokjkklr23.0% Stress Rates Pk. Fill Rate2.67EDV/secLVtime Pk. Fill 121.16msec Pk. Empty Rate4.24ESV/secLVtime Pk. Lgeka698.41msec 07/04 Pk. Fill1.93EDV/sec Stress Scores Regional WT0.00Summed WT1.00 Regional WM0.00Summed WM0.00 The rest and stress images show normal perfusion, normal contraction and thickening. LV Perf. Quant 17 Seg. SSS0.00 17 Seg. SRS0.00 17 Seg. SDS0.00 Stress Defect Extent (% LAD)0.00Rest Defect Extent (% LAD)0.00Rev. Defect Extent (% LAD)0.00 Stress Defect Extent (% LCX) 0.00Rest Defect Extent (% LCX)0.00Rev. Defect Extent (% LCX)0.00 Stress Defect Extent (% RCA)0.00Rest Defect Extent (% RCA)0.00Rev. Defect Extent (% RCA)0.00 Stress Defect Extent (% ALDEN)0.00Rest Defect Extent (% ALDEN)0.00Rev. Defect Extent (% ALDEN)0.00 Other Information Quality:Good Risk Assessment: Low Risk Conclusion 1. No evidence of stress induced EKG changes 2. Normal myocardial perfusion at stress/rest 3. Low risk study 4. Normal EF at > 65%
[2016-09-25] MEDS: ASPIRIN ENTERIC COATED 81 MG TABLET.DR. PO SCH (15:03)
--- NOTE | 2016-09-25 16:02 | CARD ---
APPROVED REPORT EXAM: Two-dimensional and M-mode echocardiogram with Doppler and color Doppler. Other Information Quality : Average Rhythm : NSR INDICATION Chest Pain 2D DIMENSIONS RVDd2.3 (2.9-3.5cm)Left Atrium(2D)3.5 (1.6-4.0cm) IVSd1.0 (0.7-1.1cm)Aortic Root(2D)3.1 (2.0-3.7cm) LVDd4.7 (3.9-5.9cm)LVOT Diameter2.1 (1.8-2.4cm) PWd1.0 (0.7-1.1cm)LVDs3.6 (2.5-4.0cm) FS (%) 26.6 %SV47.5 ml LVEF(%)53.2 (>50%) Aortic Valve AoV Peak Frank.146.2cm/sAoV VTI23.8cm AO Peak GR.8.5mmHgLVOT Peak Frank.96.6cm/s LVOT VTI 21.19cmAO Mean GR.4mmHg CUATE (VMAX)2.98wv0ZJZ (VTI)3.05cm2 Mitral Valve MV E Ymvjzzdj37.4cm/sMV DECEL PSIN623bf MV A Hvjjidpn02.1cm/sMV E Mean Gr.1mmHg MV VTY48xbK/A Ratio1.0 MV A Bjfpbpge529zrFPF (PHT)3.18cm2 TDI E/Lateral E'9.3E/Medial E'9.9 Pulmonary Valve PV Peak Wolgpkzt038.2cm/sPV Peak Grad.4mmHg RVOT VTI22.1cm Tricuspid Valve TR P. Njqfqmww550ko/sRAP ONDMDLWY4oxUm TR Peak Gr.55ltJcGFXL01zrBz Pulmonary Vein S1 Kncjwkkr02.0cm/sD2 Mvmswgwm16.8cm/s LEFT VENTRICLE The left ventricle is normal size. There is normal left ventricular wall thickness. Left ventricle sy stolic function is normal. The Ejection Fraction is 55%. There is normal LV segmental wall motion. Th e left ventricular diastolic function and filling is normal for age. RIGHT VENTRICLE The right ventricle is normal size. The right ventricular systolic function is normal. ATRIA The left atrium size is normal. The right atrium size is normal. The interatrial septum is intact wit h no evidence for an atrial septal defect or patent foramen ovale as noted on 2-D or Doppler imaging. AORTIC VALVE The aortic valve is normal in structure and function. The aortic valve is trileaflet. Doppler and Col or Flow revealed no significant aortic regurgitation. There is no significant aortic valvular stenosi s. MITRAL VALVE The mitral valve is normal in structure and function. There is no mitral valve stenosis. Doppler and Color Flow revealed no mitral valve regurgitation noted. TRICUSPID VALVE The tricuspid valve is not well visualized. Doppler and Color Flow revealed trace tricuspid regurgita tion. The PA pressure was estimated at 15 mmHg. There is no tricuspid valve stenosis. PULMONIC VALVE The pulmonic valve is not well visualized. Doppler and Color Flow revealed no pulmonic valvular regur gitation. There is no pulmonic valvular stenosis. GREAT VESSELS The aortic root is normal in size. Normal pulmonary venous flow (Doppler). The IVC is normal in size and collapses >50% with inspiration. PERICARDIAL EFFUSION There is no evidence of significant pericardial effusion. Critical Notification Critical Value: No <Conclusion> Left ventricle systolic function is normal. The Ejection Fraction is 55%. There is normal LV segmental wall motion. Trace tricuspid regurgitation. The PA pressure was estimated at 15 mmHg. There is no evidence of significant pericardial effusion.
--- NOTE | 2016-09-25 16:23 | EKG ---
[facility] [address] [place] [address] Test Date: 2016-09-25 Test Time: 16:22:12 Pat Name: PATRICK AMEZCUA Department: Room: 8 Gender: F Film Inspector: ZITA : [id number] Requested By: JULITO BECK Order Number: [id number] Reading MD: Measurements Intervals [place] Rate: 74 P: 35 ND: 152 QRS: 11 QRSD: 72 T: 21 QT: 380 QTc: 422 Interpretive Statements SINUS RHYTHM QRS(T) CONTOUR ABNORMALITY CONSIDER ANTEROSEPTAL MYOCARDIAL DAMAGE CONSIDER INFERIOR MYOCARDIAL DAMAGE POSSIBLY ABNORMAL ECG RI6.01 Compared to ECG 07/30/2016 11:54:34 Left-axis deviation no longer present Myocardial infarct finding no longer present
[2016-09-25] MEDS ORDERED: MILNACIPRAN 50 MG TABLET PO PRN (16:45)
[2016-09-25] MEDS ORDERED: ASA/APAP/CAFFEINE 250/250/65MG TABLET. PO PRN (16:45)
[2016-09-25] MEDS ORDERED: NAPROXEN 500 MG TABLET PO PRN (16:45)
[2016-09-25] MEDS ORDERED: SUMATRIPTAN SUCCINATE 25 MG TABLET. PO PRN (17:00)
[2016-09-25] MEDS: METFORMIN 850 MG TABLET PO SCH (17:11)
--- NOTE | 2016-09-25 19:59 | HP ---
ADMIT DATE: 09/25/2016 CHIEF COMPLAINT: Right arm pain, question chest pain. HISTORY OF PRESENT ILLNESS: The patient is a 51-year-old with past medical history of severe headaches, smoking history and a significant family history of heart disease who presented to the Emergency Room with a 1-day history of chest pain associated with right-sided arm pain, chest pain actually worse with lifting arm. She had 3 episodes of this yesterday and the third one finally prompted her to present to the Emergency Room. Apparently, all episodes essentially are spontaneously resolving within a few minutes. She denies any shortness of breath with that or worsening of her symptoms with deep breathing or cough. Denies any other respiratory issues, palpitations, nausea, vomiting or diarrhea. PAST MEDICAL HISTORY: Hypertension, hypercholesterolemia, diabetes mellitus, chronic lower back pain, migraines, history of "head" surgery 20 years ago. FAMILY HISTORY: CAD in almost all family members including her younger brother at age 53, diabetes, hypertension. SOCIAL HISTORY: She is , continues to smoke about a pack a day. No alcohol or drugs. ALLERGIES: No known drug allergies. HOME MEDICATIONS: Reconciled with MAR. REVIEW OF SYSTEMS: Positive as per HPI. Currently, no symptoms present. Rest of organ system review is negative. PHYSICAL EXAMINATION: VITAL SIGNS: From today, show a blood pressure of 116/74, heart rate of 72, respiratory rate of 18. She is afebrile. GENERAL: This is a 51-year-old , alert, oriented, in no acute distress. HEENT: Shows no scleral icterus. NECK: Supple without any lymphadenopathy. LUNGS: Clear to auscultation bilaterally. HEART: Has regular rate and rhythm without any murmurs. ABDOMEN: Obese, positive bowel sounds. Organs could not be palpated. EXTREMITIES: Show no edema. SKIN: Warm, soft and dry without any rash. LABORATORY DATA: CBC with a WBC of 15.7, hemoglobin 15.1, platelets of 313. Chemistries with a BUN and creatinine of 10 and 0.7, normal electrolytes, glucose at 117, 116 and 167, magnesium at 1.7. cholesterol of 212, LDL of 146, triglycerides at 130. TSH at 10.5. Troponins negative x 2. Urinalysis is essentially negative. IMAGING STUDIES: Chest x-ray from the Emergency Room shows no acute cardiopulmonary abnormality. ASSESSMENT AND PLAN: The patient is a 51-year-old with multiple risk factors for heart disease. Cardiology has been consulted. A stress test is planned given her multiple risk factors. I suspect that this; however, may be more musculoskeletal than anything else. We will await further findings. Diabetes seems fairly well controlled currently. She is currently on metformin, may have to hold this if catheterization is indicated. The patient has not been on statin for hypercholesterolemia. This has been started here. For her migraines, sumatriptan is available p.r.n. Currently, she is asymptomatic, however. LYLY OLSON MD DR: UR/nts JOB#: [id number] / [id number] PAULINE Durham MD MTDD
[2016-09-25] MEDS ORDERED: ATORVASTATIN CALCIUM 40 MG TABLET. PO SCH (21:00)
[2016-09-25] MEDS ORDERED: ATORVASTATIN CALCIUM 20 MG TABLET PO SCH (21:00)
[2016-09-25] MEDS: METHIMAZOLE 10 MG TABLET PO SCH (21:43)
[2016-09-26 03:11] VITALS: BP 94/52
[2016-09-26 07:00] VITALS: BP 99/58
[2016-09-26] MEDS ORDERED: MAGNESIUM SULFATE 1GM 100 ML IV ONE (08:30)
[2016-09-26] MEDS: ASPIRIN ENTERIC COATED 81 MG TABLET.DR. PO SCH (08:33)
[2016-09-26] MEDS: METHIMAZOLE 10 MG TABLET PO SCH (08:33)
[2016-09-26] MEDS: METFORMIN 850 MG TABLET PO SCH (08:33)
[2016-09-26] MEDS ORDERED: LISINOPRIL 10 MG TABLET PO SCH (09:00)
[2016-09-26 09:56] LABS: BASO % 0 % (0-3); EOS % 1 % (0-3); HEMATOCRIT 40.6 % (36.0-47.0); HEMOGLOBIN 13.7 g/dL (12.0-15.5); LYMPH # 2.8 x10^3/uL (1.0-4.8); LYMPH % 30 % (24-48); MEAN CORPUSCULAR HEMOGLOBIN 32 pg (25-35); MEAN CORPUSCULAR HGB CONC 34 g/dL (31-37); MEAN CORPUSCULAR VOLUME 94 fL (79-100); MONO % 8 % (0-9); NEUT % 60 % (31-73); PLATELET COUNT 284 x10^3/uL (140-400); RED CELL DISTRIBUTION WIDTH 14.5 % (11.5-14.5); WHITE BLOOD COUNT 9.2 x10^3/uL (4.0-11.0)
[2016-09-26 10:44] VITALS: BP 108/76
[2016-09-26] MEDS ORDERED: ATORVASTATIN CALCIUM 20 MG TABLET PO SCH (21:00)
[2016-09-28] MEDS ORDERED: ERGOCALCIFEROL (VITAMIN D2) 50,000 UNIT CAPSULE. PO SCH (16:00)
== END 2016-09-26 15:28 | disposition home or self-care (01) | DRG 313 ==
LOC: ER 21:48 → 5 SOUTH 22:25
PROVIDERS: ADMIT Internal Medicine; ATTEND Internal Medicine
DX: R07.89 Other chest pain (principal); E05.90 Thyrotoxicosis, unspecified without thyrotoxic crisis or storm; E11.9 Type 2 diabetes mellitus without complications; E78.00 Pure hypercholesterolemia, unspecified; E78.5 Hyperlipidemia, unspecified; E83.42 Hypomagnesemia; F17.200 Nicotine dependence, unspecified, uncomplicated; G43.909 Migraine, unspecified, not intractable, without status migrainosus; I10 Essential (primary) hypertension; G89.29 Other chronic pain; K57.90 Diverticulosis of intestine, part unspecified, without perforation or abscess without bleeding; M19.90 Unspecified osteoarthritis, unspecified site; M54.5 Low back pain; M79.601 Pain in right arm; Z82.49 Family history of ischemic heart disease and other diseases of the circulatory system; Z83.3 Family history of diabetes mellitus
CPT/HCPCS: 36415; 71010; 78452; 80048; 80061; 80076; 81001; 82553; 82947; 83690; 83735; 83880; 84439; 84443; 84484; 85027; 93005; 93017; 93306; 96361; 96374; 96375; 96376; A9500; J2405; J2785; J7030; J7060; 99285-25

== ENCOUNTER → 2017-04-25 | Outpatient (CLI) | payer MEDICARE, OTHER ==
[~2017-04-25] MED LIST changes: +ASPI-621 PO; -ERGO500012 PO; +ERGO500027 PO; +METH-364 PO; -METH10TA6 PO; -NAPR500T3 PO; +NAPR500T4 PO
--- NOTE | 2017-04-25 09:51 | RAD ---
DATE: 04/25/2017 EXAM: DIGITAL SCREEN BILAT W/CAD HISTORY: Routine screening COMPARISON: 03/16/2014 This study was interpreted with the benefit of Computerized Aided Detection (CAD). The breast parenchyma shows scattered fibroglandular densities. Breast parenchyma level B. FINDINGS: There is a small benign-appearing intramammary lymph node again noted in the axillary tail region of the right breast. No new or enlarging breast densities are seen. No suspicious microcalcifications are evident. Moderate-sized benign-appearing axillary lymph nodes are again noted. IMPRESSION: Stable mammograms without evidence of malignancy. BI-RADS CATEGORY: 2 BENIGN FINDING(S) RECOMMENDED FOLLOW-UP: 12M 12 MONTH FOLLOW-UP PQRS compliance statement: Patient information was entered into a reminder system with a target due date for the next mammogram. Mammography is a sensitive method for finding small breast cancers, but it does not detect them all and is not a substitute for careful clinical examination. A negative mammogram does not negate a clinically suspicious finding and should not result in delay in biopsying a clinically suspicious abnormality. "Our facility is accredited by the [employer] Mammography Program."
== END | disposition home or self-care (01) ==
LOC: MAMMO 08:59
PROVIDERS: ATTEND Family Medicine
DX: Z12.31 Encounter for screening mammogram for malignant neoplasm of breast (principal); F17.210 Nicotine dependence, cigarettes, uncomplicated
CPT/HCPCS: G0202; 77067

== ENCOUNTER → 2018-10-30 | Outpatient (CLI) | payer BC, OTHER ==
[~2018-10-30] MED LIST changes: -METF850T2 PO; +METF850T8 PO; +NAPR-514 PO; -NAPR500T4 PO
--- NOTE | 2018-10-30 09:56 | RAD ---
DATE: 10/30/2018 EXAM: MAMMO RHIANNON SCREENING BILATERAL HISTORY: Routine screening COMPARISON: 04/25/2017 This study was interpreted with the benefit of Computerized Aided Detection (CAD). Breast Density: SCATTERED The breast parenchyma shows scattered fibroglandular densities. Breast parenchyma level B. FINDINGS: 2-D and 3-D tomosynthesis imaging was performed in CC and MLO projections. No suspicious breast densities or architectural distortion is seen. No suspicious microcalcifications are evident. IMPRESSION: There is no mammographic evidence of malignancy in either breast. BI-RADS CATEGORY: 2 BENIGN FINDING(S) RECOMMENDED FOLLOW-UP: 12M 12 MONTH FOLLOW-UP PQRS compliance statement: Patient information was entered into a reminder system with a target due date for the next mammogram. Mammography is a sensitive method for finding small breast cancers, but it does not detect them all and is not a substitute for careful clinical examination. A negative mammogram does not negate a clinically suspicious finding and should not result in delay in biopsying a clinically suspicious abnormality. "Our facility is accredited by the [employer] Mammography Program."
== END | disposition home or self-care (01) ==
LOC: MAMMO 08:18
PROVIDERS: ATTEND Family Medicine
DX: Z12.31 Encounter for screening mammogram for malignant neoplasm of breast (principal)
CPT/HCPCS: 77063; 77067

== ENCOUNTER → 2020-02-02 | Outpatient (CLI) | payer OTHER, MEDICARE ==
[~2020-02-02] MED LIST changes: +LISI1TAB23 PO; -LISI1TAB3 PO
--- NOTE | 2020-02-03 13:39 | RAD ---
DATE: 02/02/2020 8:29 AM EXAM: MAMMO RHIANNON SCREENING BILATERAL HISTORY: Screening COMPARISON: 10/30/2018, 04/25/2017 Bilateral CC and MLO views of the breasts were performed. Bilateral breast tomosynthesis was performed in CC and MLO projections. This study was interpreted with the benefit of Computerized Aided Detection (CAD). FINDINGS: Breast Density: SCATTERED The breast parenchyma shows scattered fibroglandular densities. Breast parenchyma level B No suspicious masses, microcalcifications or architectural distortion is present to suggest malignancy in either breast. The visualized axillae are unremarkable. IMPRESSION: No mammographic evidence of malignancy. BI-RADS CATEGORY: 1 NEGATIVE RECOMMENDED FOLLOW-UP: 12M 12 MONTH FOLLOW-UP Annual screening mammography is recommended, unless clinically indicated sooner based on symptoms or change in physical exam. PQRS compliance statement: Patient information was entered into a reminder system with a target due date 02/02/2021 for the next mammogram. Mammography is a sensitive method for finding small breast cancers, but it does not detect them all and is not a substitute for careful clinical examination. A negative mammogram does not negate a clinically suspicious finding and should not result in delay in biopsying a clinically suspicious abnormality. "Our facility is accredited by the [employer] Mammography Program."
== END | disposition home or self-care (01) ==
LOC: MAMMO 08:22
PROVIDERS: ATTEND Family Medicine
DX: Z12.31 Encounter for screening mammogram for malignant neoplasm of breast (principal)
CPT/HCPCS: 77063; 77067

== ENCOUNTER → 2021-06-20 | Outpatient (CLI) | payer BC, OTHER ==
[~2021-06-20] MED LIST changes: +LISI10TA16 PO; -LISI10TA2 PO; -LISI1TAB23 PO; +LISI1TAB35 PO; -METH-364 PO; +METH10TA32 PO
--- NOTE | 2021-06-20 09:40 | RAD ---
BILATERAL DIGITAL SCREENING 2-D AND 3-D MAMMOGRAM INDICATION: Routine screening. COMPARISON: Prior studies including one of 02/02/2020. Interpretation was made using CAD. FINDINGS: Breast Density: B RIGHT BREAST: No suspicious masses, calcifications or areas of architectural distortion are seen. LEFT BREAST: No suspicious masses, calcifications or areas of architectural distortion are seen. IMPRESSION: 1. No imaging evidence of malignancy. ASSESSMENT: BI-RADS 1. Negative. RECOMMENDATION: Routine annual screening mammogram. The facility will notify the patient of the results via mail. Patient information will be entered int o the mammography reminder system with a target recall date for the next mammogram. A reminder letter will be generated by the facility. Electronically signed by: Tonio Blair Jr., MD (06/20/2021 9:37 AM) [id number]
== END ==
LOC: MAMMO 08:50
PROVIDERS: ATTEND Family Medicine
DX: Z12.31 Encounter for screening mammogram for malignant neoplasm of breast (principal)
CPT/HCPCS: 77063; 77067